=== PATIENT | female | born 1945 | race Caucasian/White ===

== ENCOUNTER → 2016-10-12 | Outpatient (CLI) | payer OTHER ==
[~2016-10-12] MED LIST: ANTACID650 MG PO; ASPIRIN EC81 M1 PO; ASPIRIN81 MG PO; AUGMENTIN875 MG PO; BACTRIM DS TABL1 TA2 PO; BAYER WOMEN'S1 EACH PO; BENTYL10 M1 PO; CORGARD20 MG PO; DOXYCYCLINE PO; FEROSUL325 ( 651 PO; GLIPIZIDE10 MG PO; GLUCOTROL10 MG PO; IRON1 TAB PO; IRON325 ( 651 PO; IRON45 MG PO; JANUVIA PO; JANUVIA100 MG PO; LEVAQUIN250 MG PO; METFORMIN HCL1000 M1 PO; METOPROLOL SUC100 MG PO; NATURAL VITA400 UNI2 PO; PRILOSEC PO; PRILOSEC20 M1 PO; TOPROL XL PO; TOPROL XL100 MG PO; TRIAMTERENE-HC1 EACH PO; TRIAMTERENE-HCT1 TA6 PO; TRIAMTERENE/HCT1 TA3 PO; VANTIN200 MG PO; VITAMIN E400 UNI2 PO; XIFAXAN550 MG PO
[2016-10-12 10:13] LABS: ALBUMIN SERUM 2.9 g/dL (3.5-5.0); BILIRUBIN,TOTAL 1.6 mg/dL (0.2-2.0); BUN/CREATININE RATIO 24.61; CREATININE SERUM 1.3 mg/dL (0.6-1.4); GLOM FILT RATE Estimated 41.5 mL/min (>60); POTASSIUM 4.6 mmol/L (3.5-5.1)
[2016-10-14 19:56] LABS: MICROALB UR (PNL) 0.1 mg/dL (***)
== END | disposition home or self-care (01) ==
LOC: SLAB 09:27
PROVIDERS: Internal Medicine Endocrinology, Diabetes & Metabolism
DX: K74.60 Unspecified cirrhosis of liver (principal); E11.65 Type 2 diabetes mellitus with hyperglycemia
CPT/HCPCS: 36415; 80053; 80061; 82043; 82570; 83036

== ENCOUNTER → 2017-01-06 | Outpatient (CLI) | payer OTHER ==
--- NOTE | ~2017-01-06 | US6 ---
[facility] A Service of [facility] & [facility] RADIOLOGY TEXT RESULTS PATIENT: SUREKHA COLLAZO LOCATION: [facility] : 45 UNIT #: [id number] AGE: [address]: Yusef Melcohr MD SEX: F ORDER DR: [id number] [facility] [address] [place], [place] [address] [id number] O MR#: [id number] Acc #: [id number] NAME: SUREKHA COLLAZO. : 1945 SEX: F STUDY DATE/TIME: 01/06/2017 9:06 UNIT: [facility] ROOM: STUDY DESCRIPTION: US Abdominal Limited Attending Physician: Yusef Melchor M.D. Referring Physician: Yusef Melchor M.D. Ordering Physician: Yusef Melchor M.D. Primary Care Physician: Marybeth Chaparro M.D. MEDICAL IMAGING REPORT This report is preliminary unless electronic signature is present EXAM Right upper quadrant ultrasound HISTORY Ascites. FINDINGS Ultrasound examination of the right upper quadrant demonstrates coarsened hepatic echotexture, suggesting fatty infiltration of the liver. Nodular hepatic contour characteristic of cirrhosis. Moderate ascites in the right upper quadrant. Mild gallbladder wall thickening measuring up to 5 mm could be due to edema or inflammation. Small amount of echogenic gallbladder sludge. No gallstones or biliary dilatation. The common bile duct measures 5 mm. The visualized pancreatic body is unremarkable. Pancreatic head and tail are incompletely visualized. Survey of the right kidney demonstrates no hydronephrosis. IMPRESSION 1. Moderate ascites in the right upper quadrant. 2. Cirrhosis with echogenic hepatic parenchyma which could be secondary to associated fatty infiltration or parenchymal changes of cirrhosis. 3. Small amount of echogenic gallbladder sludge. No biliary dilatation. 4. Mild gallbladder wall thickening could be due to edema or inflammation. Dictated by... Jose Duke M.D. THIS IS AN ELECTRONICALLY VERIFIED REPORT Jose Duke M.D. at 01/07/2017 11:19 PM DFL/gavin [facility] A Service of [facility] & [facility] RADIOLOGY TEXT RESULTS PATIENT: SUREKHA COLLAZO LOCATION: [facility] : 45 UNIT #: [id number] AGE: [address]: Yusef Melchor MD SEX: F ORDER DR: TD: 01/06/2017 19:14 JOB #: [id number] MEDICAL IMAGING REPORT Page 1 of 1 COPY
== END | disposition home or self-care (01) ==
LOC: CGUS 08:35
DX: K74.60 Unspecified cirrhosis of liver (principal); K76.9 Liver disease, unspecified; K72.90 Hepatic failure, unspecified without coma; E11.9 Type 2 diabetes mellitus without complications; R18.8 Other ascites; K82.8 Other specified diseases of gallbladder
CPT/HCPCS: 76705

== ENCOUNTER → 2017-02-11 | Outpatient (CLI) | payer OTHER ==
--- NOTE | ~2017-02-11 | CT57 ---
[facility] A Service of [facility] & [facility] RADIOLOGY TEXT RESULTS PATIENT: SUREKHA COLLAZO LOCATION: [facility] : 45 UNIT #: [id number] AGE: [address]: Lulu Foster MD SEX: F ORDER DR: [id number] [facility] [address] [place], [place] [address] [id number] O MR#: [id number] Acc #: [id number] NAME: SUREKHA COLLAZO : 1945 SEX: F STUDY DATE/TIME: 02/11/2017 11:15 UNIT: [facility] ROOM: STUDY DESCRIPTION: CT Chest Wo Cont Attending Physician: Lulu Foster M.D. Referring Physician: Lulu Foster M.D. Ordering Physician: Lulu Foster M.D. Primary Care Physician: Marybeth Chaparro M.D. MEDICAL IMAGING REPORT This report is preliminary unless electronic signature is present EXAM CT scan of the chest without contrast, 02/11/2017. HISTORY 1.5 cm nodule in the right middle lobe on chest CT 07/21/2016. Six-month followup was recommended to assess for stability. TECHNIQUE Spiral CT was performed through the chest without intravenous contrast administration as per clinician request. This CT exam was performed with one or more of the following radiation dose reduction techniques: automatic exposure control, adjustment of mA and/or kV according to patient size, and iterative reconstruction. FINDINGS Compared with the previous examination 07/21/2016, the nodule in the right middle lobe medially has decreased in size. On the previous exam, the lesion measured 1.5 cm in greatest diameter and currently measures 8 mm. No new nodules are identified. There is, however, dense airspace consolidation in the left upper lobe and lingula characteristic of pneumonia. Follow up until resolution is suggested. Some minimal fibrosis in the right lower lobe is noted with right lower lobe atelectasis. Mild diffuse centrilobular emphysema. The heart is normal in size. There is no significant thoracic adenopathy and there are no pleural effusions. Small hiatal hernia is again noted. Images of the upper abdomen demonstrate cirrhotic liver and perihepatic ascites. The spleen is enlarged. The gallbladder is distended and there are gallstones along the dependent portion of the gallbladder. IMPRESSION 1. Interval decrease in size of the nodule in the right middle lobe compared with 07/21/2016 as detailed above. No new pulmonary nodules [facility] A Service of [facility] & [facility] RADIOLOGY TEXT RESULTS PATIENT: SUREKHA COLLAZO LOCATION: [facility] : 45 UNIT #: [id number] AGE: [address]: Lulu Foster MD SEX: F ORDER DR: are seen. 2. Interval development of dense airspace consolidation in the left upper lobe and lingula characteristic of pneumonia. Follow up until resolution is recommended. 3. Emphysema. 4. Small hiatal hernia, esophageal hernia containing omental fat and ascites fluid unchanged. 5. Cirrhotic liver morphology. Splenomegaly. 6. Ascites within the upper abdomen. 7. Distended gallbladder and cholelithiasis. STAT * RESULT Dictated by... Puneet Chen M.D. THIS IS AN ELECTRONICALLY VERIFIED REPORT Puneet Chen M.D. at 02/11/2017 4:52 PM CAITLIN/katelyn TD: 02/11/2017 11:53 JOB #: [id number] MEDICAL IMAGING REPORT Page 1 of 1 COPY
== END | disposition home or self-care (01) ==
LOC: CCAT 02-07 10:20
DX: R91.1 Solitary pulmonary nodule (principal); J43.9 Emphysema, unspecified; J18.1 Lobar pneumonia, unspecified organism; K44.9 Diaphragmatic hernia without obstruction or gangrene; R18.8 Other ascites; R16.1 Splenomegaly, not elsewhere classified; K80.20 Calculus of gallbladder without cholecystitis without obstruction; K74.60 Unspecified cirrhosis of liver; K82.8 Other specified diseases of gallbladder
CPT/HCPCS: 71250

== ENCOUNTER → 2017-03-01 | Outpatient (CLI) | payer OTHER ==
--- NOTE | ~2017-03-01 | US85 ---
[facility] A Service of [facility] & [facility] RADIOLOGY TEXT RESULTS PATIENT: SUREKHA COLLAZO LOCATION: [facility] : 45 UNIT #: [id number] AGE: [address]: Charlie Light MD SEX: F ORDER DR: [id number] [facility] [address] [place], [place] [address] [id number] O MR#: [id number] Acc #: [id number] NAME: SUREKHA COLLAZO. : 1945 SEX: F STUDY DATE/TIME: 03/01/2017 9:42 UNIT: [facility] ROOM: STUDY DESCRIPTION: [facility] Attending Physician: Charlie Light Jr., M.D. Referring Physician: Charlie Light Jr., M.D. Ordering Physician: Charlie Light Jr., M.D. Primary Care Physician: Marybeth Chaparro M.D. MEDICAL IMAGING REPORT This report is preliminary unless electronic signature is present EXAM Left lower extremity venous duplex, 03/01/2017 HISTORY Left lower extremity edema for 1 year. Evaluate for deep vein thrombosis. TECHNIQUE Venous ultrasound examination of the left lower extremity was performed using grayscale, spectral Doppler and color flow Doppler imaging. FINDINGS The examination is negative. There is no evidence of left lower extremity deep venous thrombus from the groin to the lower calf. Visualized greater saphenous vein is also patent. IMPRESSION Negative examination. No evidence of left lower extremity deep venous thrombosis. Dictated by... Puneet Chen M.D. THIS IS AN ELECTRONICALLY VERIFIED REPORT Puneet Chen M.D. at 03/02/2017 7:46 AM Charly TD: 03/01/2017 11:57 JOB #: [id number] MEDICAL IMAGING REPORT Page 1 of 1 COPY
== END | disposition home or self-care (01) ==
LOC: CNIV 09:15
DX: R60.0 Localized edema (principal)
CPT/HCPCS: 93971

== ENCOUNTER → 2017-03-10 | Outpatient (CLI) | payer MEDICARE ==
[2017-03-10 12:41] LABS: CALCIUM SERUM 8.6 mg/dL (8.4-10.2); CREATININE SERUM 1.5 mg/dL (0.6-1.4); GLOM FILT RATE Estimated 34.7 mL/min (>60)
== END | disposition home or self-care (01) ==
LOC: SLAB 12:05
PROVIDERS: Internal Medicine Gastroenterology
DX: K74.60 Unspecified cirrhosis of liver (principal); K72.90 Hepatic failure, unspecified without coma; I85.00 Esophageal varices without bleeding; K76.9 Liver disease, unspecified; Z88.2 Allergy status to sulfonamides
CPT/HCPCS: 36415; 80048